=== PATIENT | male | born 1950 | race Two or more races ===

== ENCOUNTER 2021-10-18 08:45 | Inpatient (IN) | payer OTHER ==
[~2021-10-18] VITALS: Ht 170.2 cm; Wt 77.1 kg
== END 2021-10-27 10:05 | disposition home or self-care (01) | DRG 330 ==
LOC: SURH 10-23 05:15 → O/R 10-23 05:15 → SURH 10-23 08:45 → SURG 10-23 11:30 → SURH 10-23 12:07
PROVIDERS: ADMIT Colon & Rectal Surgery; ATTEND Colon & Rectal Surgery
PROC: 0DBP4ZZ Excision of Rectum, Percutaneous Endoscopic Approach (ICD-10-PCS; 2021-10-23)
PROC: 0DTN4ZZ Resection of Sigmoid Colon, Percutaneous Endoscopic Approach (ICD-10-PCS; principal; 2021-10-23 17:30)
DX: K57.30 Diverticulosis of large intestine without perforation or abscess without bleeding (principal); K92.1 Melena; K91.870 Postprocedural hematoma of a digestive system organ or structure following a digestive system procedure; R50.82 Postprocedural fever; Z20.822 Contact with and (suspected) exposure to COVID-19

== ENCOUNTER 2021-11-03 12:45 | Inpatient (IN) | payer OTHER ==
[~2021-11-03] VITALS: Ht 152.4 cm; Wt 77.1 kg
--- NOTE | 2021-11-03 12:54 | NUR ---
PATIENT IS RECIEVED SAYING THAT HE HAS LOWER BACK PAIN AND GENERAL MALAISE AND SUSPECTS THAT IT IS DUE TO A SURGERY THAT WAS PERFORMED BY DR. GAMBINO FOR DIVERTICULITIS ON October.
--- NOTE | 2021-11-03 16:28 | NUR ---
SE LE ORIENTA A PTE SOBRE TRATAMIENTO A SEGUIR, EL REFIERE ENTENDER, SE LE COLECTA MUESTRAS, SE CANALIZA Y SE ADMINISTRA MEDICAMENTO JUAN ORDEN MEDICA UTILIZANDO MEDIDAS ASEPTICAS. PENDIENTE CT IV
[2021-11-05] MEDS ORDERED: MIRALAX510 GM (10:48)
[2021-11-05] MEDS ORDERED: TUMS ULTRA400 MG (10:48)
[2021-11-09] MEDS ORDERED: AMOX-CLAV 875-1 EACH PO (12:23)
[2021-11-09] MEDS ORDERED: FUSION CAPSULE1 EACH PO (12:23)
[2021-11-09] MEDS ORDERED: ABANEU-SL TABL1 EACH SL (12:23)
[2021-11-09] MEDS ORDERED: INTESTINEX680 M1 PO (12:23)
[2021-11-09] MEDS ORDERED: FAMOTIDINE20 MG PO (12:25)
== END 2021-11-09 12:40 | disposition home or self-care (01) | DRG 603 ==
LOC: ER 12:45 → SURG 21:30
PROVIDERS: ADMIT Colon & Rectal Surgery; ATTEND Colon & Rectal Surgery
PROC: 0H97X0Z Drainage of Abdomen Skin with Drainage Device, External Approach (ICD-10-PCS; principal; 2021-11-05)
DX: L02.211 Cutaneous abscess of abdominal wall (principal); T81.41XA Infection following a procedure, superficial incisional surgical site, initial encounter; R18.8 Other ascites; D72.829 Elevated white blood cell count, unspecified; R10.30 Lower abdominal pain, unspecified; R53.81 Other malaise; Z20.822 Contact with and (suspected) exposure to COVID-19